=== PATIENT | male | born 1930 | race Caucasian/White ===

== ENCOUNTER 2016-06-14 17:07 | Observation (INO) | payer OTHER ==
[~2016-06-14] VITALS: Ht 157.5 cm; Wt 66.6 kg
[~2016-06-14 17:07] MED LIST: ASPIR 8181 M1 PO; AVODART0.5 MG PO; BACTRIM,SEPT1 TABLET PO; CYANOCOBALAM1000 MCG PO; DAILY MULTIPLE1 EACH PO; DOCUSATE SODIU100 MG PO; ENDOCET 5-3251 EACH PO; FLOMAX0.4 MG PO; GLUCOSAMINE &1 EAC1 PO; HUMULIN N100 UNITS/ SC; LATANOPROST2.5 ML BOTH EYES; LISINOPRIL10 MG PO; LO-DOSE ASPIRIN81 M2 PO; METFORMIN HCL1000 MG PO; NORCO 5/3251 TABLET PO; RANITIDINE HCL150 MG PO; ROCEPHIN 2 GM VI2 GM IV; SIMVASTATIN10 MG PO; TAMSULOSIN HCL0.4 MG PO; VENTOLIN HFA18 GM IH; VITAMIN B-6100 MG PO; VITAMIN E400 UNIT PO
[2016-06-14 18:07] LABS: EOSINOPHIL (%) 4.7 % (0-5); EOSINOPHIL COUNT 0.4 K/uL (0-0.3); HEMATOCRIT 38.5 % (38.0-50.0); IMMATURE GRANULOCYTE (%) 0.5 % (0.0-0.7); INSTRUMENT ABS NEUTROPHIL CT 4.9 K/uL; MCH 36.3 PG (29.0-34.0); MCHC 34.3 G/DL (30.0-36.0); MCV 105.8 FL (86-99); MEAN PLAT.VOLUME 9.2 uM^3 (9.0-12.4); MONOCYTE COUNT 1.2 K/uL (0-0.8); NEUTROPHIL (%) 57.1 % (45-76); NEUTROPHIL COUNT 4.9 K/uL (1.8-6.4); PLATELET COUNT 240 K/uL (156-360); RBC DIS.WIDTH-CV 12.1 % (11.8-14.6); RBC DIS.WIDTH-SD 47.7 % (39-53); RED BLOOD COUNT 3.64 M/uL (4.00-5.50); WHITE BLOOD COUNT 8.5 K/uL (4.1-10.2)
[2016-06-14 18:18] LABS: PROTHROMBIN TIME 10.4 (9.2-11.2); PTT 26.1 (25-32)
[2016-06-14 18:28] LABS: CHLORIDE 105 mEq/L (99-109); POTASSIUM 4.5 mEq/L (3.7-5.4); SODIUM 138 mEq/L (136-147)
[2016-06-14 18:30] LABS: GLUCOSE 151 mg/dL (70-99)
[2016-06-14 18:31] LABS: ANION GAP 11 MEQ/L (2-14)
[2016-06-14 18:34] LABS: GFR ESTIMATE (CALCULATED) > 59 mL/min/
[2016-06-14 18:35] LABS: UREA NITROGEN (BUN) 16 mg/dL (9-23)
[2016-06-14 18:41] LABS: TROP-I INTERPRETATION NEGATIVE; TROPONIN-I < 0.01 ng/mL (0.0-0.30)
[2016-06-14] MEDS ORDERED: SALONPAS PATCH1 EACH TD (19:23)
[2016-06-14] MEDS ORDERED: CYANOCOBALAM1000 MCG PO (19:24)
[2016-06-14] MEDS ORDERED: AVODART0.5 MG PO (19:25)
[2016-06-14] MEDS ORDERED: FLOMAX0.4 MG PO (19:27)
[2016-06-14] MEDS ORDERED: GLUCOPHAGE1000 MG PO (19:27)
[2016-06-14] MEDS ORDERED: LO-DOSE ASPIRIN81 M2 PO (19:27)
[2016-06-14] MEDS ORDERED: VITAMIN C1000 MG PO (19:28)
[2016-06-14 21:30] VITALS: BP 156/67
[2016-06-14 22:13] LABS: POINT-OF-CARE METER ID UU14162513
[2016-06-15 01:04] LABS: TROP-I INTERPRETATION NEGATIVE; TROPONIN-I < 0.01 ng/mL (0.0-0.30)
[2016-06-15 02:12] LABS: HDL CHOLESTEROL 45 MG/DL (Desirable>=40); LDL CHOLESTEROL 51 mg/dL (Desirable<100); NON-HDL CHOLESTEROL 88 mg/dL (Desirable<160); TOTAL CHOLESTEROL 133 mg/dL (Desirable<200); TRIGLYCERIDES 185 MG/DL (Normal: <150)
[2016-06-15 04:00] VITALS: BP 142/64
[2016-06-15 06:05] LABS: TROP-I INTERPRETATION NEGATIVE; TROPONIN-I 0.02 ng/mL (0.0-0.30)
[2016-06-15 06:47] LABS: Estimated Average Glucose 148 mg/dL (70-123); HEMOGLOBIN A1c (GLYCOHEMOGLOB) 6.8 % HGB (Below 5.7)
[2016-06-15 07:08] VITALS: BP 138/65
[2016-06-15 08:41] LABS: POINT-OF-CARE METER ID UU13113831
[2016-06-15 12:15] VITALS: BP 146/84
[2016-06-15 13:02] LABS: POINT-OF-CARE METER ID UU13113831
== END 2016-06-15 14:06 | disposition home or self-care (01) ==
LOC: EME 17:07 → EDOF 19:28 → 5WEST 19:28 → EDOF 19:28 → 5WEST 20:44
PROVIDERS: Emergency Medicine; Family Medicine; Hospitalist; Physician Assistant
DX: R20.2 Paresthesia of skin (principal); I65.23 Occlusion and stenosis of bilateral carotid arteries; R07.89 Other chest pain; R10.13 Epigastric pain; R42 Dizziness and giddiness; I10 Essential (primary) hypertension; E11.9 Type 2 diabetes mellitus without complications; E78.5 Hyperlipidemia, unspecified; I73.9 Peripheral vascular disease, unspecified; Z86.73 Personal history of transient ischemic attack (TIA), and cerebral infarction without residual deficits
CPT/HCPCS: 70450; 70551; 71020; 80048; 80061; 82948; 83036; 84484; 85025; 85610; 85730; 93005; 93880; 94640; 99202; 99281; 99284; G0378; J1815; J2405

== ENCOUNTER 2016-08-19 06:54 | Inpatient (IN) | payer OTHER ==
[~2016-08-19] VITALS: Ht 157.5 cm; Wt 70.5 kg
[2016-08-19] VITALS (11 sets, daily range): BP systolic 90–146; BP diastolic 48–65
[~2016-08-19 06:54] MED LIST changes: +GLUCOPHAGE1000 MG PO; +SALONPAS PATCH1 EACH TD; +VITAMIN C1000 MG PO
[2016-08-19 08:01] LABS: POINT-OF-CARE METER ID UU14174212
[2016-08-19 11:40] LABS: POINT-OF-CARE METER ID UU13113675
[2016-08-19] MEDS ORDERED: HYDROCODON-ACE1 EAC7 PO (11:48)
[2016-08-19 16:07] LABS: METH RESISTANT S AUREUS PCR NEGATIVE (NEGATIVE)
[2016-08-19 16:19] LABS: PROBE CHECK PASS; SPECIMEN PROCESSING CONTROL PASS
[2016-08-19 22:03] LABS: POINT-OF-CARE USER ID PHATLC
[2016-08-20 00:05] VITALS: BP 122/60
[2016-08-20 04:15] VITALS: BP 105/57
[2016-08-20 07:33] VITALS: BP 106/54
[2016-08-20 12:17] VITALS: BP 118/57
== END 2016-08-20 13:41 | disposition home or self-care (01) | DRG 39 ==
LOC: 2SOUTH 06:54 → 4WEST 14:17 → SDC 14:55 → EDSTATUS 14:56 → 2SOUTH 15:02 → 4EAST 08-20 00:05
PROVIDERS: Surgery
DX: I65.22 Occlusion and stenosis of left carotid artery (principal); I10 Essential (primary) hypertension; E11.9 Type 2 diabetes mellitus without complications; N40.0 Benign prostatic hyperplasia without lower urinary tract symptoms; E78.00 Pure hypercholesterolemia, unspecified; F17.290 Nicotine dependence, other tobacco product, uncomplicated; Z79.82 Long term (current) use of aspirin; Z79.4 Long term (current) use of insulin; Z86.73 Personal history of transient ischemic attack (TIA), and cerebral infarction without residual deficits
CPT/HCPCS: 82948; 87641; 93005; 94799; 99202; C1768; J0690; J1644; J1650; J1815; J2250; J2405; J2720; J2795; J3010; J7120

== ENCOUNTER 2017-01-28 20:07 | Observation (INO) | payer OTHER ==
[~2017-01-28] VITALS: Ht 157.5 cm; Wt 68.9 kg
[~2017-01-28 20:07] MED LIST changes: +HYDROCODON-ACE1 EAC7 PO
[2017-01-28 20:41] LABS: HEMATOCRIT 39.9 % (38.0-50.0); MCH 35.5 PG (29.0-34.0); MCHC 35.1 G/DL (30.0-36.0); MCV 101.3 FL (86-99); MEAN PLAT.VOLUME 9.9 uM^3 (9.0-12.4); PLATELET COUNT 236 K/uL (156-360); RBC DIS.WIDTH-CV 12.2 % (11.8-14.6); RBC DIS.WIDTH-SD 45.8 % (39-53); RED BLOOD COUNT 3.94 M/uL (4.00-5.50); WHITE BLOOD COUNT 7.8 K/uL (4.1-10.2)
[2017-01-28 20:50] LABS: CHLORIDE 106 mEq/L (99-109); POTASSIUM 4.4 mEq/L (3.7-5.4); SODIUM 137 mEq/L (136-147)
[2017-01-28 20:51] LABS: GLUCOSE 166 mg/dL (70-99)
[2017-01-28 20:53] LABS: ANION GAP 11 MEQ/L (2-14)
[2017-01-28 20:55] LABS: GFR ESTIMATE (CALCULATED) 51 mL/min/
[2017-01-28 20:56] LABS: UREA NITROGEN (BUN) 19 mg/dL (9-23)
[2017-01-28 21:03] LABS: TROP-I INTERPRETATION NEGATIVE; TROPONIN-I < 0.01 ng/mL (0.0-0.30)
[2017-01-29] MEDS ORDERED: OMEPRAZOLE40 M1 PO (00:17)
[2017-01-29 04:52] VITALS: BP 162/77
[2017-01-29 05:49] LABS: TROP-I INTERPRETATION NEGATIVE; TROPONIN-I < 0.01 ng/mL (0.0-0.30)
[2017-01-29 05:58] LABS: HDL CHOLESTEROL 44 MG/DL (Desirable>=40); LDL CHOLESTEROL 68 mg/dL (Desirable<100); NON-HDL CHOLESTEROL 86 mg/dL (Desirable<160); TOTAL CHOLESTEROL 130 mg/dL (Desirable<200); TRIGLYCERIDES 89 MG/DL (Normal: <150)
[2017-01-29 08:00] VITALS: BP 149/83
[2017-01-29 09:48] LABS: POINT-OF-CARE METER ID UU13113700
[2017-01-29 10:45] LABS: TROP-I INTERPRETATION NEGATIVE; TROPONIN-I < 0.01 ng/mL (0.0-0.30)
[2017-01-29 11:04] VITALS: BP 154/58
[2017-01-29 11:54] LABS: POINT-OF-CARE METER ID UU13113700
== END 2017-01-29 13:11 | disposition home or self-care (01) ==
LOC: EME 20:07 → 5WEST 01-29 01:08 → EDOF 01-29 01:08 → ENRESERV 01-29 01:12 → 5WEST 01-29 04:13
PROVIDERS: Hospitalist; Nurse Practitioner Family
DX: R07.89 Other chest pain (principal); I70.203 Unspecified atherosclerosis of native arteries of extremities, bilateral legs; E78.5 Hyperlipidemia, unspecified; I10 Essential (primary) hypertension; Z86.73 Personal history of transient ischemic attack (TIA), and cerebral infarction without residual deficits; E11.9 Type 2 diabetes mellitus without complications; Z95.810 Presence of automatic (implantable) cardiac defibrillator; F17.200 Nicotine dependence, unspecified, uncomplicated; Z79.4 Long term (current) use of insulin; Z79.82 Long term (current) use of aspirin; Z90.49 Acquired absence of other specified parts of digestive tract
CPT/HCPCS: 71020; 80048; 80061; 82607; 82746; 82948; 84484; 85027; 93005; 93925; 99202; 99281; 99285; G0378; J1650; J1815